=== PATIENT | male | born 1940 | race African-American/Black ===

== ENCOUNTER 2019-04-21 10:29 | Day surgery (SDC) | payer OTHER ==
--- NOTE | 2019-04-06 16:50 | EKG ---
[address] [place] [address] ELECTROCARDIOGRAM REPORT Name: CONRADO AMIN Room #: [facility] [place]..#: [id number] Admission: Attend Phys: Conrado Tyler MD Discharge: Date of : 44 Report #: [id number] THIS REPORT FOR: //name// [facility] Test Date: 2019-04-06 Test Time: 15:19:19 Pat Name: CONRADO AMIN Department: Room: Gender: Lead Bi Developer: Stalin BAE : 1940 Requested By: Conrado Tyler Order Number: [id number] MD: Adrien Celis Measurements Intervals Elmo Rate: 79 P: 55 OH: 187 QRS: 21 QRSD: 84 T: 3 QT: 380 QTc: 436 Interpretive Statements Sinus rhythm Abnormal R-wave progression, early transition Compared to ECG 05/04/2016 19:44:45 No significant changes Electronically Signed On 04-06-2019 16:50:30 CROP DUSTER HELPER by Adrien Celis [email or web address] <ELECTRONICALLY SIGNED> By: Adrien Celis MD 04/06/19 2150 1519 1519 MD DONNA Vanessa
[~2019-04-21] VITALS: Ht 193 cm; Wt 89.8 kg
[~2019-04-21 10:29] MED LIST: CLONIDINE0.1 PO; COMBIGAN EYE DR10 ML OPHTHALMIC; HYDROCHLOROTHIA25 M2 PO; LISINOPRIL40 MG PO; SIMVASTATIN40 MG PO; TAMSULOSIN HCL0.4 MG PO; TOPROL XL25 MG PO
[2019-04-21 11:32] VITALS: BP 158/99
--- NOTE | 2019-04-25 06:15 | O ---
[facility] [place] [address] OPERATIVE REPORT Name: ELOISACONRADO Room #: DEP [facility]#: [id number] Admission: 04/21/19 Attend Phys: Conrado Tyler MD Discharge: 04/21/19 Date of : 44 Report #: [id number] THIS REPORT FOR: //name// CC: Didi Tyler DATE OF SERVICE: 04/21/2019 CARBON PAPER COATING SUPERVISOR: None. PREOPERATIVE DIAGNOSIS: Bilateral upper lid ptosis with superior visual field defects both eyes. POSTOPERATIVE DIAGNOSIS: Bilateral upper lid ptosis with superior visual field defects both eyes. OPERATION PERFORMED: Bilateral upper lid functional ptosis repair. CARBON PAPER COATING SUPERVISOR: None. ANESTHESIA: Local with IV sedation. COMPLICATIONS: None. INDICATIONS FOR PROCEDURE: This patient has bilateral upper lid ptosis with superior visual field loss both eyes. Visual field testing demonstrates dense superior visual defects. Retesting with the upper lid elevated shows an improvement in visual field loss of over 30% and in excess of 12 degrees. The current procedure is being undertaken in order to improve the patient's visual function. Informed consent was obtained to include but not limited to the risk of loss of vision, bleeding, infection, scarring, failure to improve the problem and need for further surgery, such as adjustment of lid height. DESCRIPTION OF PROCEDURE: The patient was taken to the operating room, where 2% Xylocaine with epinephrine mixed with equal parts of 0.75% Marcaine with Wydase was administered transcutaneously to each upper lid. The patient was then prepped and draped in the usual sterile fashion. An upper lid crease incision was then made bilaterally and the dissection was carried down until the orbital septum was identified. The orbital septum was then cleared and the preaponeurotic fat identified. The levator aponeurosis was then disinserted from the anterior surface of the tarsal plate and dissected [address] [address] OPERATIVE REPORT Name: CONRADO AMIN Room #: DEP [facility].#: [id number] Admission: 04/21/19 Attend Phys: Conrado Tyler MD Discharge: 04/21/19 Date of : 44 Report #: [id number] free in the avascular Noriega's muscle plane. The aponeurosis was then advanced and reattached to the anterior surface of the tarsal plate with interrupted mattress 6-0 Novafil sutures on each side, adjusting for height and contour. The redundant aponeurosis was then amputated. The incision was then closed with multiple interrupted 6-0 chromic sutures that were used to recreate an upper lid crease. The skin was closed with a running 6-0 plain gut suture. The wound was then cleaned and dressed with ophthalmic antibiotic ointment followed by a Telfa pad. The patient was transported to the recovery area, having tolerated the procedure well with no anesthesia or operative complications being noted. <ELECTRONICALLY SIGNED> By: Conrado Tyler MD 04/25/19 0615 1245 1252 Conrado Tyler MD /joslyn
== END 2019-04-21 14:00 | disposition home or self-care (01) ==
LOC: OR 10:29 → TBA 10:31 → OR 11:19
DX: H02.413 Mechanical ptosis of bilateral eyelids (principal); H53.462 Homonymous bilateral field defects, left side; H53.461 Homonymous bilateral field defects, right side; I10 Essential (primary) hypertension; Z98.890 Other specified postprocedural states; Z79.899 Other long term (current) drug therapy; Z98.41 Cataract extraction status, right eye; Z88.8 Allergy status to other drugs, medicaments and biological substances
CPT/HCPCS: 50010; 50101; 50386; 50398; 51636; 56528; 56531; 62110; 62850; 70005

== ENCOUNTER 2020-02-27 18:22 | Emergency (ER) | payer OTHER ==
[~2020-02-27] VITALS: Ht 193 cm; Wt 93.0 kg
[2020-02-27 23:06] LABS: HEMATOCRIT 46.7 % (42.0-52.0); HEMOGLOBIN 15.7 gm/dL (14.0-18.0); MCH 31.4 pg (26.0-34.0); MCHC 33.5 g/dL (28.0-37.0); MCV 93.5 fL (80.0-100.0); RDW 14.2 % (10.5-14.5); WBC 6.1 thou/uL (4.0-11.0)
[2020-02-27 23:23] LABS: URINE BILIRUBIN NEGATIVE (Negative); URINE BLOOD NEGATIVE (Negative); URINE CLARITY CLEAR; URINE COLOR YELLOW; URINE GLUCOSE-RANDOM* NEGATIVE (Negative); URINE KETONES NEGATIVE (Negative); URINE LEUKOCYTES-REFLEX NEGATIVE (Negative); URINE NITRITE-REFLEX NEGATIVE (Negative); URINE PROTEIN (DIPSTICK) NEGATIVE (Negative); URINE UROBILINOGEN 0.2 E.U./dl (0.2-1.0)
[2020-02-27 23:24] LABS: CALCIUM 9.1 mg/dL (8.5-10.1); CREATININE 0.9 mg/dL (0.7-1.3); POTASSIUM 5.8 mmol/L (3.5-5.1)
[2020-02-28 01:14] VITALS: BP 157/98
--- NOTE | 2020-02-28 13:03 | EKG ---
[facility] [place] [address] ELECTROCARDIOGRAM REPORT Name: GUSTABO AMIN Room #: DEP [facility]#: [id number] Admission: 02/27/20 Attend Phys: Discharge: 02/28/20 Date of : 44 Report #: [id number] THIS REPORT FOR: cc: Didi Adams MD, Kelly A. 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
== END 2020-02-28 01:16 | disposition home or self-care (01) ==
LOC: ER 18:22
PROVIDERS: Emergency Medicine
DX: I10 Essential (primary) hypertension (principal); E78.5 Hyperlipidemia, unspecified; Z79.899 Other long term (current) drug therapy; Z88.8 Allergy status to other drugs, medicaments and biological substances